=== PATIENT | male | born 1955 | race Caucasian/White ===

== ENCOUNTER 2018-08-28 17:42 | Observation (INO) | payer OTHER ==
--- NOTE | 2018-08-28 17:49 | EDPHY ---
H & P Time Seen by Provider: 08/28/18 17:48 HPI/ROS: Chief complaint. Trouble speaking HPI. Patient is a 62-year-old male with history of Parkinson's disease and prior CV A. Apparently his daughter noticed that he was having some balance issues yesterday though because of the previous CVA and Parkinson's that is not unusual. However she noticed that he was having trouble speaking at noon. She says last known normal was at noon. Symptoms have continued through the day. She notes he was using words but not making sense. He last took his Parkinson' s meds at noon. Patient tells me has no headache. His vision is normal now but earlier there was some cut off of his vision. Otherwise not ill recently. No recent head injury. He denies chest pain, shortness of breath, abdominal pain. Patient is brought to the ED by his daughter. He did not arrive by EMS ROS 10 systems were reviewed and negative with the exception of the elements mentioned in the history of present illness Past Medical/Surgical History: Parkinson's disease, CVA Social History: , nonsmoker, no alcohol Physical Exam: General Appearance: Alert well-developed male mild distress vital signs are stable Eyes: Pupils equal and round no pallor or injection. ENT, Mouth: Mucous membranes are moist. Respiratory: There are no retractions, lungs are clear to auscultation. Cardiovascular: Regular rate and rhythm. Gastrointestinal: Abdomen is soft and nontender, no masses, bowel sounds normal. Neurological: Awake and alert, sensory and motor exams grossly normal. Speech is somewhat slurred. There is no pronator drift. Cranial nerves show maybe slight left lip droop. Sensation to the face is symmetrical. Owewsb-ho-eyih is somewhat ataxic with left hand. Skin: Warm and dry, no rashes. Musculoskeletal: Neck is supple nontender. Extremities symmetrical, full range of motion. Psychiatric: Patient is oriented X 1--he thinks he is in green [place]. He does not know the month or year, there is no agitation. Constitutional: Initial Vital Signs Temperature (C) 36.6 C 08/28/18 17:51 Heart Rate 70 08/28/18 17:51 Respiratory Rate 18 08/28/18 17:51 Blood Pressure 124/80 H 08/28/18 17:51 O2 Sat (%) 94 08/28/18 17:51 O2 Delivery Mode Room Air Medical Decision Making - Diagnostics EKG Interpretation: EKG interpreted by me shows normal sinus rhythm normal interval and axis. QRS is normal there is no significant ST elevation or depression. There is no arrhythmia. The rate is 60 Imaging Results: Imaging Impressions Head CT 08/28/18 17:59 Impression: 1. No acute intracranial hemorrhage. 2. No evidence of acute cortical ischemia. 3. 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 Findings discussed with Emergency Department physician, Kash George on 2017, 18:13. Head CTA 08/28/18 18:24 Impression: 1. Normal intracranial arterial circulation. No evidence of embolic disease or aneurysm. 2. Patent venous system. Findings discussed with Emergency Department physician, Kash George on 2017, 19:04. Neck CTA 08/28/18 18:24 Impression: 1. Minimal bilateral carotid plaque resulting in less than 20% stenosis. 2. No hemodynamically significant stenosis, dissection or occlusion. Measurement of carotid stenosis is based on the residual internal carotid diameter with [place] Symptomatic Carotid Endarterectomy Trial (NASCET) based stenosis levels. Findings discussed with Emergency Department physician, Kash George on 2017, 19:04. Noncontrast head CT shows no acute hemorrhage. There is old left temporal occipital CVA. Reviewed by me and discussed Dr. Li CT a of head and neck show no evidence of aneurysm or large vessel occlusion. Procedures: IV normal saline, monitor After seeing the patient stroke activation is called ED Course/Re-evaluation: I consulted discussed case with Dr. Abel with [facility]. She agrees the patient is out of the window for tP A. She rib commands CTA head and neck and if there is a large vessel occlusion we will transfer the patient Re-evaluation at 6:20 p.m. Symptoms are may be somewhat better but continues Re-evaluation again at 7:15 p.m. Patient his daughter and I discussed imaging and lab results. We discussed treatment plan including recommendation for admission. They expressed understanding I consulted discussed case Dr. Jhaveri, hospitalist, who agrees to the admission Differential Diagnosis: We considered CVA, TIA. I suspect that this is more encephalopathy of unclear etiology. - Data Points Laboratory Results: Laboratory Results 08/28/18 18:02 08/28/18 18:02 08/28/18 08/28/18 08/28/18 18:30 18:06 18:02 WBC RBC Hgb POC Hgb 12.9 gm/dL L gm/dL (13.7-17.5) Hct POC Hct 38 % L % (40-51) MCV MCH MCHC RDW Plt Count MPV Neut % (Auto) Lymph % (Auto) [place] % (Auto) Eos % (Auto) Baso % (Auto) Nucleat RBC Rel Count Absolute Neuts (auto) Absolute Lymphs (auto) Absolute Monos (auto) Absolute Eos (auto) Absolute Basos (auto) Absolute Nucleated RBC Immature Gran % Immature Gran # PT INR POC Sodium 143 mEq/L mEq/L (135-145) Sodium 139 mEq/L mEq/L (135-145) POC Potassium 3.8 mEq/L mEq/L (3.3-5.0) Potassium 3.9 mEq/L mEq/L (3.3-5.0) POC Chloride 109 mEq/L mEq/L (97-110) Chloride 111 mEq/L H mEq/L (97-110) Carbon Dioxide 22 mEq/l mEq/l (22-31) Anion Gap 6 mEq/L L mEq/L (8-16) POC BUN 17 mg/dL mg/dL (7-23) BUN 17 mg/dL mg/dL (7-23) Creatinine 1.0 mg/dL mg/dL (0.7-1.3) POC Creatinine 1.2 mg/dL mg/dL (0.7-1.3) Estimated GFR > 60 Glucose 94 mg/dL mg/dL (70-100) POC Glucose 94 mg/dL mg/dL (70-100) Calcium 9.5 mg/dL mg/dL (8.5-10.4) POC Troponin I 0.01 ng/mL ng/mL (0.00-0.08) 08/28/18 08/28/18 18:02 18:02 WBC 7.39 10^3/uL 10^3/uL (3.80-9.50) RBC 4.32 10^6/uL L 10^6/uL (4.40-6.38) Hgb 13.8 g/dL g/dL (13.7-17.5) POC Hgb Hct 38.4 % L % (40.0-51.0) POC Hct MCV 88.9 fL fL (81.5-99.8) MCH 31.9 pg pg (27.9-34.1) MCHC 35.9 g/dL g/dL (32.4-36.7) RDW 12.1 % % (11.5-15.2) Plt Count 206 10^3/uL 10^3/uL (150-400) MPV 10.5 fL fL (8.7-11.7) Neut % (Auto) 70.7 % % (39.3-74.2) Lymph % (Auto) 20.4 % % (15.0-45.0) [place] % (Auto) 7.4 % % (4.5-13.0) Eos % (Auto) 0.8 % % (0.6-7.6) Baso % (Auto) 0.3 % % (0.3-1.7) Nucleat RBC Rel Count 0.0 % % (0.0-0.2) Absolute Neuts (auto) 5.22 10^3/uL 10^3/uL (1.70-6.50) Absolute Lymphs (auto) 1.51 10^3/uL 10^3/uL (1.00-3.00) Absolute Monos (auto) 0.55 10^3/uL 10^3/uL (0.30-0.80) Absolute Eos (auto) 0.06 10^3/uL 10^3/uL (0.03-0.40) Absolute Basos (auto) 0.02 10^3/uL 10^3/uL (0.02-0.10) Absolute Nucleated RBC 0.00 10^3/uL 10^3/uL (0-0.01) Immature Gran % 0.4 % % (0.0-1.1) Immature Gran # 0.03 10^3/uL 10^3/uL (0.00-0.10) PT 13.8 SEC SEC (12.0-15.0) INR 1.04 (0.83-1.16) POC Sodium Sodium POC Potassium Potassium POC Chloride Chloride Carbon Dioxide Anion Gap POC BUN BUN Creatinine POC Creatinine Estimated GFR Glucose POC Glucose Calcium POC Troponin I Point of Care Test Results: Chemistry 08/28/18 08/28/18 18:30 18:06 POC Sodium 143 mEq/L mEq/L (135-145) POC Potassium 3.8 mEq/L mEq/L (3.3-5.0) POC Chloride 109 mEq/L mEq/L (97-110) POC BUN 17 mg/dL mg/dL (7-23) POC Creatinine 1.2 mg/dL mg/dL (0.7-1.3) POC Glucose 94 mg/dL mg/dL (70-100) POC Troponin I 0.01 ng/mL ng/mL (0.00-0.08) ISTAT H&H 08/28/18 18:06 POC Hgb 12.9 gm/dL L gm/dL (13.7-17.5) POC Hct 38 % L % (40-51) Departure - Departure Disposition: Home, Routine, Self-Care Clinical Impression: Altered mental status Qualifiers: Altered mental status type: disorientation Qualified Code(s): R41.0 - Disorientation, unspecified Condition: Fair Referrals: NONE *PRIMARY CARE P,. [Primary Care Provider] - As per Instructions
[2018-08-28 18:17] LABS: PLATELET COUNT 206 10^3/uL (150-400)
[2018-08-28 18:25] LABS: INR 1.04 (0.83-1.16); PROTIME(PATIENT) 13.8 SEC (12.0-15.0)
--- NOTE | 2018-08-28 18:49 | CPEKG ---
Test Reason : OPEN Blood Pressure : / mmHG Vent. Rate : 065 BPM Atrial Rate : 065 BPM P-R Int : 168 ms QRS Dur : 090 ms QT Int : 432 ms P-R-T Axes : 040 025 029 degrees QTc Int : 450 ms Sinus rhythm Confirmed by Kash George ([id number]) on 08/28/2018 6:48:53 PM Referred By: Confirmed By:Kash George
[2018-08-28] MEDS ORDERED: ACETAMINOPHEN 325 MG TAB PO PRN (22:33)
[2018-08-28] MEDS ORDERED: ONDANSETRON 4 MG/2 ML VIAL IVP PRN (22:33)
[2018-08-28] MEDS ORDERED: NS 1,000 ML IV SCH (22:45)
--- NOTE | 2018-08-28 23:48 | PDHOSCONS ---
History and Physical - Chief Complaint word finding difficulty - History of Present Illness Source - patient able to provide majority of history. slightly limited with aphasia. family gone for evening. EMR reviewed and case discussed with accepting hospitalist. HPI - Ed is a pleasant 62-year-old gentleman with past medical history significant for Parkinson disease with home walker dependence, history of CVA with left-sided weakness rigid schedule who presents emergency department today with his daughter initially for concerns of balance issues as well as aphasia. Approximately noon today patient had developed some speech changes on. Daughter had reported to ED providers that the words were distinct but not in intention intelligible order for appropriate sentences. On patient reports that he also had a little bit of visual changes some blurring around new but this has resolved. Patient denies any recent injuries or illnesses or falls. He states that he does stay well-hydrated and eats well. He denies any associated chest pain, palpitations, shortness of breath course presyncope. The patient does report wearing knee pads for history of falls but denies anything recently. History Information - Allergies/Home Medication List Allergies/Adverse Reactions: ropinirole [From Requip] Allergy (Verified 08/28/18 20:19) rotigotine [From Neupro] Allergy (Verified 08/28/18 20:19) Vomiting Home Medications: Aspirin [Aspirin 81mg (*)] 81 mg PO DAILY 08/28/18 [Last Taken Unknown] Multivitamins [Multivitamin (*)] 2 each PO DAILY 08/28/18 [Last Taken Unknown] Pravastatin Sodium [Pravachol] 80 mg PO DAILY 08/28/18 [Last Taken Unknown] Stalevo 200 (Dutz-Rchx-Ghdci 50-200-200) 2 tab PO QID@08,12,16,20 08/28/18 [ Last Taken 08/28/18 16:00] I have personally reviewed and updated: family history, medical history, social history, surgical history - Past Medical History Additional medical history: Parkinson's disease. History CVA with left-sided weakness - Surgical History Additional surgical history: Cataract extraction on the right with lens placement. Right total knee arthroplasty. Left foot surgery - Family History Additional family history: Patient denies any history CVA or neurologic conditions. - Social History Tobacco Use: Cigarettes Alcohol Use: None Drug Use: None Additional social history: Patient is lives with his of 42 years. Is walker dependent and has a history of falls. Cor status-limited patient does not want intubation but is amenable to all other resuscitative cardiac effort. Review of Systems Review of Systems: ROS: 10pt was reviewed & negative except for what was stated in HPI & below Constitutional: Denies: chills, fever, weakness EENMT: Reports: no symptoms Cardiac: Reports: no symptoms. Denies: chest pain, lightheadedness, palpitations, syncope Respiratory: Reports: no symptoms Gastrointestinal: Reports: no symptoms Genitourinary: Reports: no symptoms Muscolosketal: Reports: no symptoms Skin: Reports: no symptoms Neurological: Reports: no symptoms, other (Gait disturbance related to Parkinson 's denies any acute changes.) Hematologic/Lymphatic: Reports: no symptoms Physical Exam Physical Exam: Selected Entries 08/28/18 17:51 Heart Rate 70 Respiratory 18 Rate O2 Sat (%) 94 Temperature (C) 36.6 C Blood Pressure 124/80 H Mean Arterial 94 Pressure (MAP) O2 Delivery Room Air Mode Temperature Oral Source Temp Pulse Resp BP Pulse Ox 36.8 C 69 16 101/62 90 L 08/28/18 23:31 08/28/18 23:31 08/28/18 23:31 08/28/18 23:31 08/28/18 23:31 Constitutional: no apparent distress, appears nourished, not in pain, chronically ill appearing, other (NAD. Pleasant adult gentleman is resting quietly in bed.) Eyes: PERRL, anicteric sclera, EOMI, No scleral injection Ears, Nose, Mouth, Throat: dry mucous membranes, hard of hearing, other (No nasal discharge), No poor dentition (Dentition in fair condition.) Cardiovascular: regular rate and rhythym, no murmur, rub, or gallop, pulses symmetric bilaterally, No edema Peripheral Pulses: 2+: dorsalis-pedis (R), dorsalis-pedis (L) Respiratory: no respiratory distress, no rales or rhonchi, clear to auscultation , No reduced air movement, No expiratory wheeze, No inspiratory crackles, No respiratory distress Gastrointestinal: normoactive bowel sounds, soft, non-tender abdomen, no palpable masses, No distension Genitourinary: no bladder tenderness, No richardson in urethra Skin: warm, no rashes or abrasions Musculoskeletal: no muscle tenderness, generalized weakness (Upper lower extremities.), No joint tenderness Neurologic: AAOx3, sensation intact bilaterally, other (Patient with some word- finding difficulties but able to convey alternative objective is what he wants to describe.), No facial droop Psychiatric: interacting appropriately, not anxious, not encephalopathic, thought process linear Lab Data & Imaging Review 08/28/18 18:02 08/28/18 18: WBC 7.39 10^3/uL (3.80-9.50) 08/28/18 18: RBC 4.32 10^6/uL (4.40-6.38) L 08/28/18 18: Hgb 13.8 g/dL (13.7-17.5) 08/28/18 18: POC Hgb 12.9 gm/dL (13.7-17.5) L 08/28/18 18: Hct 38.4 % (40.0-51.0) L 08/28/18 18: POC Hct 38 % (40-51) L 08/28/18 18: MCV 88.9 fL (81.5-99.8) 08/28/18 18: MCH 31.9 pg (27.9-34.1) 08/28/18 18: MCHC 35.9 g/dL (32.4-36.7) 08/28/18 18: RDW 12.1 % (11.5-15.2) 08/28/18 18: Plt Count 206 10^3/uL (150-400) 08/28/18 18: MPV 10.5 fL (8.7-11.7) 08/28/18 18:02 Neut % (Auto) 70.7 % (39.3-74.2) 08/28/18 18: Lymph % (Auto) 20.4 % (15.0-45.0) 08/28/18 18: [place] % (Auto) 7.4 % (4.5-13.0) 08/28/18 18: Eos % (Auto) 0.8 % (0.6-7.6) 08/28/18 18: Baso % (Auto) 0.3 % (0.3-1.7) 08/28/18 18:02 Nucleat RBC Rel Count 0.0 % (0.0-0.2) 08/28/18 18:02 Absolute Neuts (auto) 5.22 10^3/uL (1.70-6.50) 08/28/18 18:02 Absolute Lymphs (auto) 1.51 10^3/uL (1.00-3.00) 08/28/18 18:02 Absolute Monos (auto) 0.55 10^3/uL (0.30-0.80) 08/28/18 18:02 Absolute Eos (auto) 0.06 10^3/uL (0.03-0.40) 08/28/18 18:02 Absolute Basos (auto) 0.02 10^3/uL (0.02-0.10) 08/28/18 18:02 Absolute Nucleated RBC 0.00 10^3/uL (0-0.01) 08/28/18 18:02 Immature Gran % 0.4 % (0.0-1.1) 08/28/18 18:02 Immature Gran # 0.03 10^3/uL (0.00-0.10) 08/28/18 18:02 PT 13.8 SEC (12.0-15.0) 08/28/18 18:02 INR 1.04 (0.83-1.16) 08/28/18 18:02 POC Sodium 143 mEq/L (135-145) 08/28/18 18:06 Sodium 139 mEq/L (135-145) 08/28/18 18:02 POC Potassium 3.8 mEq/L (3.3-5.0) 08/28/18 18:06 Potassium 3.9 mEq/L (3.3-5.0) 08/28/18 18:02 POC Chloride 109 mEq/L (97-110) 08/28/18 18:06 Chloride 111 mEq/L (97-110) H 08/28/18 18:02 Carbon Dioxide 22 mEq/l (22-31) 08/28/18 18:02 Anion Gap 6 mEq/L (8-16) L 08/28/18 18:02 POC BUN 17 mg/dL (7-23) 08/28/18 18:06 BUN 17 mg/dL (7-23) 08/28/18 18:02 Creatinine 1.0 mg/dL (0.7-1.3) 08/28/18 18:02 POC Creatinine 1.2 mg/dL (0.7-1.3) 08/28/18 18:06 Estimated GFR > 60 08/28/18 18:02 Glucose 94 mg/dL (70-100) 08/28/18 18:02 POC Glucose 94 mg/dL (70-100) 08/28/18 18:06 Calcium 9.5 mg/dL (8.5-10.4) 08/28/18 18:02 POC Troponin I 0.01 ng/mL (0.00-0.08) 08/28/18 18:30 Imaging Review: CT Head (Without Contrast) 6:03 PM Indication: Stroke alert. Speech difficulty; prior CVA. Comparison: None. Technique: Standard noncontrast head CT protocol utilizing 5 mm thick collimated slices and field of view of 23 cm. Dose reduction techniques were utilized. Findings: The brain is normally developed. No acute intracranial hemorrhage or subdural hematoma. An old left posterotemporal occipital infarction is evidenced by volume loss and low-attenuation gliosis. Barraza-white interfaces are otherwise well preserved. No evidence of acute cortical ischemia. The pituitary gland is normal size. The cervicooccipital junction is normal. No intracranial mass. The paranasal sinuses are clear. No bone lesion. Impression: 1. No acute intracranial hemorrhage. 2. No evidence of acute cortical ischemia. 3. 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 Findings discussed with Emergency Department physician, Kash George on 2017, 18:13. Dictated By: Blaise Li MD CT Angiography of the Head Indication: New speech difficulty. R29.818 Neurological changes strongly suggesting intracerebral aneurysm. Comparison: Unenhanced CT head same day. Technique: Axial contrast-enhanced images were obtained from the vertex through the skull base following the uneventful intravenous administration of 85 mL Isovue-370. Multiplanar reformations are performed. Dose reduction techniques were utilized. Findings: The anterior and posterior circulation are normal. No filling defect , occlusion, aneurysm, or vascular malformation. The sagittal sinus is normally opacified. No enhancing intracranial mass. The paranasal sinuses are clear. Impression: 1. Normal intracranial arterial circulation. No evidence of embolic disease or aneurysm. 2. Patent venous system. Findings discussed with Emergency Department physician, Kash George on 2017, 19:04. Dictated By: Blaise Li MD Visualized and Interpreted imaging results: Yes EKG additional interpertation: NSR in the 60s. No acute ST changes. QTC 450. Assessment & Plan Assessment: 62-year-old gentleman with history of Parkinson disease and history CVA with left-sided weakness who presents emergency department with complaints of balance disturbance and word-finding difficulties. 1. aphasia - differential diagnosis including acute CVA versus TIA versus exacerbation of Parkinson's symptoms versus some other source of encephalopathy. Patient reports that his symptoms have improved slightly but they are still persistent. CT of the head and CTA of the head and neck were negative for any acute findings. Electrolytes and basic laboratory studies were also within normal limits. Patient on does appear slightly dehydrated and does endorse declined oral intake recently so will give him some gentle IV fluid hydration, check a UA for any potential infectious source on and order PT/ OT/ST for further evaluation. Additionally have requested that neurology visit with patient for further assessment and recommendations. Non tPA stroke protocol is been ordered and in place. Continue 81 mg aspirin. Chronic medical issues #Parkinson disease - continue patient's Stalevo 1 med rec is available. #Hyperlipidemia - continue statin therapy. Lipid panel FEN - IVF as noted above. electrolytes WNL. diet as tolerated. PPX - SCDs. lovenox COR - Limited. Patient does not want to be intubated. amenable to all cardiac resuscitation efforts if needed. Dispo - patient admitted to observation status on the neuro surgical floor for close neurologic monitoring and testing.
[2018-08-29 04:42] LABS: PLATELET COUNT 212 10^3/uL (150-400)
[2018-08-29] MEDS ORDERED: ENTACAPONE 200 MG TAB PO SCH (08:45)
[2018-08-29] MEDS ORDERED: CARBIDOPA/LEVODOPA 25 MG/100 MG TAB PO SCH (08:45)
[2018-08-29] MEDS ORDERED: ASPIRIN 81 MG CHEWABLE TAB PO SCH (09:00)
[2018-08-29] MEDS: STALEVO PO SCH ×4 (10:10→20:28)
[2018-08-29] MEDS: ENOXAPARIN 40 MG/0.4 ML SYR SC SCH (10:13)
[2018-08-29] MEDS: PRAVASTATIN SODIUM 40 MG TAB PO SCH (10:13)
--- NOTE | 2018-08-29 10:42 | ASMTCMCOM ---
CM Note CM Note Notes: Patient admitted for CVA symptoms. He has a history of Parkinson's disease and uses a walker to ambulate at home. He has recently moved to [place] from [place] to live with his daughter Kelly and her boyfriend. His is in the process of moving here, as well. There are not any home care services in place, although Kelly's boyfriend is home all day. They are amenable to any of our recommendations. Case Management will follow. Date Signed: 08/29/2018 10:42 AM Electronically Signed By:Erlinda Forrester RN
--- NOTE | 2018-08-29 16:08 | HOSPPROG ---
Hospitalist Progress Note Assessment/Plan: * Acute weakness -d/w Dr. Reyes - suspect Parkinson's exacerbation due to dehydration -patient still doing poorly, unsafe for dispo - continue PT/OT * Parkinson's -Stalevo * h/o CVA with left weakness -ASA * Hyperlipidemia -LDL 76 - okay Subjective: No new complaints. Objective: Vital Signs Temp Pulse Resp BP Pulse Ox 36.7 C 75 21 H 96/57 L 95 08/29/18 15:11 08/29/18 15:11 08/29/18 15:11 08/29/18 15:11 08/29/18 15:11 Laboratory Results 08/29/18 04:15 08/29/18 04:15 08/28/18 08/29/18 08/30/18 05:59 05:59 05:59 Intake Total 643 Output Total 925 250 Balance -282 -250 PT 13.8 SEC (12.0-15.0) 08/28/18 18:02 INR 1.04 (0.83-1.16) 08/28/18 18:02 case d/w DR. Reyes regarding diagnosis CT head - negative CTA - negative - Physical Exam Constitutional: no apparent distress, appears nourished, not in pain Cardiovascular: regular rate and rhythym, no murmur, rub, or gallop Respiratory: no respiratory distress, no rales or rhonchi, clear to auscultation Gastrointestinal: normoactive bowel sounds, soft, non-tender abdomen, no palpable masses Skin: no rashes or abrasions, no fluctuance, no induration Musculoskeletal: generalized weakness, No full muscle strength, No joint effusion, No joint tenderness, No pain with ROM Neurologic: AAOx3, sensation intact bilaterally Psychiatric: interacting appropriately, not anxious, not encephalopathic, thought process linear ICD10 Worksheet Patient Problems: Problems Problem Status Onset Altered mental status Acute
--- NOTE | 2018-08-29 19:06 | GCON ---
NEUROLOGY CONSULT. CHIEF COMPLAINT: Speech and balance changes. HISTORY OF PRESENT ILLNESS: This is a very pleasant 62-year-old gentleman with a known past medical history of Parkinson disease and previous left posterior stroke. The patient recently moved here from [place] and is currently establishing care with providers. I spoke with his daughter at length on the phone obtaining the collateral history. Specifically, 2 days prior to admission the patient went to a Parkinson disease spin class and went "110%" according to his daughter, which was well above and beyond his normal exertion. He did become somewhat dehydrated as he had decreased p.o. intake and in that setting, yesterday he had increased articulatory problems with motor speech without aphasia and his balance was worse than usual as he does have ataxia at baseline from his Parkinson disease. Because of these symptoms, his daughter called his , I believe back in [place], who wanted the patient come to the ED because of his previous history of stroke. He was evaluated under a stroke alert. The initial head CT without contrast showed the old left temporal occipital infarction with encephalomalacia without any evidence of acute cortical ischemia or hemorrhage. He had CT angio of the head and neck. There was some minimal bilateral carotid plaquing, less than 20%, without any other acute findings. Angiography of the head showed normal intracranial circulation. In addition, he has a patent venous system. No large vessel occlusion. Upon admission he appeared clinically dehydrated and has been rehydrated and now is back to his baseline. His speech and gait are back to baseline. He was eating breakfast and was very comfortable this morning. We discussed at length. REVIEW OF SYSTEMS: Ten-point review of systems was done and only pertinent to the HPI. For past medical history, social history, family history, home medications, allergies, see Dr. Alcala's hospitalist consultation note. PHYSICAL EXAM: VITAL SIGNS: Blood pressure is 117/70, temperature 36.7, respiratory rate 16 to 20. GENERAL: The patient is awake and alert, very pleasant. He does have some hypomania and generalized bradykinesia. No pill rolling tremor exam. No focal weakness. Sensory exam is normal. IMPRESSION/PLAN: 1. Parkinson disease. 2. Chronic left posterior cerebral infarction. Overall, my impression is the patient likely had some combination of a parkinsonian fluctuation or even possibly a post stroke recrudescence type event in the setting of high level of exertion noted above in the HPI and possible coexisting dehydration. He is back to his baseline. Fortunately, head CT without contrast and angiography of the head and neck did not show any acute neurovascular syndrome findings. I had a long discussion with the daughter regarding fluctuations in Parkinson disease and we also discussed the syndrome of post stroke recrudescence. He is now well hydrated and back to his baseline. I recommend going forward he continue his home medications including his Parkinson disease medications and daily aspirin. He apparently has an appointment with an outpatient neurologist already established, but they do not remember their name. I recommend he keep that appointment for ongoing management of his Parkinson disease and other neurologic conditions as he now has moved to [place]. No further recommendations. He will likely discharge in the near future. Therefore, we will sign off and follow up as needed. Please do not hesitate to call if there are any questions or changes in neurologic status with this very pleasant patient. Forty-five total minutes floor time today reviewing the head CT, angio of the head and neck, inpatient records, direct counseling with the patient and his daughter via phone call and coordination of care. /[id number]/MODL MTDD
[2018-08-30] MEDS: ENOXAPARIN 40 MG/0.4 ML SYR SC SCH (08:02)
[2018-08-30] MEDS: PRAVASTATIN SODIUM 40 MG TAB PO SCH (08:02)
[2018-08-30] MEDS: STALEVO PO SCH ×3 (08:02→16:34)
[2018-08-30] MEDS ORDERED: ASPIRIN 81 MG CHEWABLE TAB PO SCH (09:00)
[2018-08-30] MEDS ORDERED: MULTIVITAMINS 1 EACH TAB PO SCH (09:00)
--- NOTE | 2018-08-30 09:58 | ASMTCMCOM ---
CM Note CM Note Notes: Ledy in [facility] inpatient rehab admissions is assessing pt; will have to see therapy progress and re-eval Saturday. Pt insurance was ran and his responsibility to go to [facility] inpatient rehab is $1700. Referral was also sent to [facility] to run pt insurance and see what payment would be for SNF in case pt needs SNF level of care. Spoke with pt, dghtr Kelly and Meggan about d/c planning. They want [facility] inpatient rehab if pt not safe to go home and know about the $1700. If pt does not qualify for [facility] inpatient rehab family would like pt to go home with 24/hr supervision of Kelly and her boyfriend Cm will follow pt progress. Date Signed: 08/30/2018 09:57 AM Electronically Signed By:SHAGGY Ryan
[2018-08-30 12:08] VITALS: BP 97/60
--- NOTE | 2018-08-30 13:15 | PDIAF ---
- Diagnosis Diagnosis: parkinsons Code Status: Limited Resuscitation - Medication Management Discharge Medications: Medications to Continue on Transfer Aspirin [Aspirin 81mg (*)] 81 mg PO DAILY 08/28/18 [Last Taken Unknown] Multivitamins [Multivitamin (*)] 2 each PO DAILY 08/28/18 [Last Taken Unknown] Pravastatin Sodium [Pravachol] 80 mg PO DAILY 08/28/18 [Last Taken Unknown] Stalevo 200 (Cpvq-Vyqb-Sapgu 50-200-200) 2 tab PO QID@08,12,16,20 08/28/18 [ Last Taken 08/28/18 16:00] Discharge Medications: Refer to the Discharge Home Medication list for PRN reason. - Orders Services needed: Home Care, Physical Therapy, Occupational Therapy, Speech Language Pathologist Home Care Face to Face: I certify that this patient was under my care and that I had the required [id number] encounter meeting the encounter requirements on the discharge day. My findings support the fact that the patient is homebound as defined in Home Care Face to Face Continued: CMS Chapter 7 Medicare Benefits Manual 30.1.1 , The condition of the patient is such that there exists a normal inability to leave home and consequently, leaving home would require a considerable and taxing effort. Diet Recommendation: no restrictions on diet - Follow Up Care Current Providers and Referrals: NONE *PRIMARY CARE P,. [Primary Care Provider] - As per Instructions
--- NOTE | 2018-08-30 13:43 | ASMTCMCOM ---
CM Note CM Note Notes: Pt has progressed with OT/PT who rec HHC today. Pt and family amenable to HC, choose [facility]. Pt medically stable for d/c. Pt dghtr Kelly to transport home. Pt living with Kelly at [address] [place] [phone], [facility] commissioning agent RN notified. Had to leave voicemail updating pt Meggan. Orders to be obtained via [employer]. Date Signed: 08/30/2018 01:43 PM Electronically Signed By:SHAGGY Ryan
--- NOTE | 2018-08-30 13:44 | ASMTLACE ---
LACE Length of stay for Answers: 2 days current admission Acuity / Level of Answers: Yes Care: Did the patient have an inpatient admission? Comorbidities - select Answers: Cerebrovascular disease all that apply (CVA, TIA, aneurysms, vasc ular dementia) Other Notes: Parkinson's # of Emergency department Answers: 1-2 visits in the last 6 months Score: 8 Date Signed: 08/30/2018 01:43 PM Electronically Signed By:SHAGGY Ryan
--- NOTE | 2018-08-31 05:27 | GDS ---
DIAGNOSES: 1. Parkinson's exacerbation due to dehydration. 2. History of stroke with chronic left-sided weakness. 3. Hyperlipidemia. HISTORY OF PRESENT ILLNESS: The patient is a 62-year-old male, who presented with acute weakness. Klarissa srinivasan has a history of Parkinson disease. Neurology was consulted. They felt he likely had a Parkinson exacerbation from dehydration as he had recently done a spin class and really exerted himself. They did not think any further workup was necessary. He, initially, was unsafe for discharge and PT and O T were recommending rehabilitation; however, the last 24 hours he is dramatically improved, and has n ow been cleared to discharge home with home health. DISCHARGE MEDICATIONS: Please see computer record for full detailed list. There are no new medicati ons given at time of hospital discharge. DISCHARGE INSTRUCTIONS: 1. Follow up with Neurology as already scheduled. 2. Home health PT, OT, and speech therapy. Greater than 30 minutes' time spent arranging this discharge. Patient seen and examined by me on the day of discharge. /[id number]/MODL
== END 2018-08-30 16:48 | disposition home health service (06) ==
LOC: INTOOBSV 19:24 → F3N 21:35
PROVIDERS: ADMIT Internal Medicine; ATTEND Internal Medicine
DX: G20 Parkinson's disease (principal); E86.0 Dehydration; I69.354 Hemiplegia and hemiparesis following cerebral infarction affecting left non-dominant side; Z96.652 Presence of left artificial knee joint; E78.5 Hyperlipidemia, unspecified
CPT/HCPCS: 70450; 70496; 70498; 92523; 92610; 93005; 96372; 97116; 97161; 97166; 97535; 99285; G0378; J1650; 82435-PO; 82565-PO; 82947-PO; 84132-PO; 84295-PO; 84484-PO; 84520-PO; 85014-PO